=== PATIENT | male | born 1975 | race Hispanic/Latino ===

== ENCOUNTER 2017-12-16 21:10 | Emergency (ER) | payer BC ==
[2017-12-16 22:23] LABS: BASO % 0.4 % (0.0-2.0); EOS % 0.4 % (0.0-4.0); LYMPH # 1.3 K/uL (1.0-4.3); LYMPH % 12.1 % (20.0-40.0); MEAN CELL VOLUME 87.2 fl (80.0-94.0); MEAN CORPUSCULAR HEMOGLOBIN 30.8 pg (27.0-31.0); MEAN CORPUSCULAR HGB CONC 35.3 g/dL (33.0-37.0); MEAN PLATELET VOLUME 9.1 fl (7.2-11.7); MONO # 0.2 K/uL (0.0-0.8); MONO % 1.7 % (0.0-10.0); NEUT # 8.9 K/uL (1.8-7.0); NEUT % 85.4 % (50.0-75.0); RBC 5.5 Mil/uL (4.40-5.90); RED CELL DISTRIBUTION WIDTH 13.4 % (11.5-14.5); WHITE BLOOD COUNT 10.4 K/uL (4.8-10.8)
[2017-12-16 22:37] LABS: ALB/GLOB RATIO 1.4 (1.0-2.1); ALT/SGPT 28 U/L (21-72); AST/SGOT 27 U/L (17-59); BLOOD UREA NITROGEN 19 mg/dl (9-20); GFR AFRICAN-AMERICAN > 60; GFR NON-AFRICAN AMERICAN > 60
[2017-12-16 22:38] LABS: INR 1.1 (0.9-1.2); PROTHROMBIN TIME 12.1 Seconds (9.8-13.1)
[2017-12-16] MEDS ORDERED: Sodium Chloride 0.9% 50 ML IV ONE (22:44)
[2017-12-16] MEDS ORDERED: Iodixanol 320 MG/ML 100 ML BOTTLE IV ONE (22:45)
[2017-12-16] MEDS ORDERED: DiphenhydrAMINE 50 mg/ml Inj IV STA (22:55)
--- NOTE | 2017-12-16 23:09 | ED PDOC ---
HPI: SOB/CHF/COPD Time Seen by Provider: 12/16/17 21:22 Chief Complaint (Nursing): Shortness Of Breath Chief Complaint (Provider): shortness of breath History Per: Patient History/Exam Limitations: no limitations Onset/Duration Of Symptoms: Days Current Symptoms Are (Timing): Still Present Additional Complaint(s): 42 year old male presents to the ED complaining of shortness of breath and weakness. 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 He took a baby aspirin and no other blood thinners. Denies nausea, vomiting, diaphoresis. PMD: No Family Provider Past Medical History Reviewed: Historical Data, Nursing Documentation, Vital Signs Vital Signs: Last Vital Signs Temp 98 F 12/16/17 23:16 Pulse 92 H 12/17/17 00:32 Resp 16 12/17/17 00:32 BP 101/75 12/16/17 23:16 Pulse Ox 96 12/17/17 00:32 - Medical History PMH: Atrial Fibrillation Other PMH: lyme disease - Family History Family History: States: Unknown Family Hx - Allergies Allergies/Adverse Reactions: Allergies Allergy/AdvReac Type Severity Reaction Status Date / Time No Known Allergies Allergy Verified 12/16/17 21:13 Review of Systems ROS Statement: Except As Marked, All Systems Reviewed And Found Negative Constitutional: Positive for: Weakness. Negative for: Sweats Cardiovascular: Positive for: Palpitations Respiratory: Positive for: Shortness of Breath Gastrointestinal: Negative for: Nausea, Vomiting Physical Exam - Reviewed Nursing Documentation Reviewed: Yes Vital Signs Reviewed: Yes - Physical Exam Appears: Positive for: In Acute Distress (mild) Head Exam: Positive for: ATRAUMATIC, NORMAL INSPECTION, NORMOCEPHALIC Skin: Positive for: Normal Color, Warm, Dry Eye Exam: Positive for: EOMI, Normal appearance, PERRL ENT: Positive for: Normal ENT Inspection Neck: Positive for: Normal, Painless ROM, Supple. Negative for: Decreased ROM Cardiovascular/Chest: Positive for: Regular Rate, Rhythm, Tachycardia Respiratory: Positive for: Normal Breath Sounds. Negative for: Decreased Breath Sounds, Accessory Muscle Use, Respiratory Distress Gastrointestinal/Abdominal: Positive for: Normal Exam, Bowel Sounds, Soft. Negative for: Tenderness, Guarding, Rebound Back: Positive for: Normal Inspection. Negative for: L CVA Tenderness, R CVA Tenderness Extremity: Positive for: Normal ROM. Negative for: Tenderness, Pedal Edema, Deformity Neurologic/Psych: Positive for: Alert, Oriented (x3). Negative for: Motor/ Sensory Deficits - Laboratory Results Result Diagrams: 12/16/17 21:55 12/16/17 21:55 - ECG Pulse Ox Interpretation: Normal Medical Decision Making Medical Decision Making: Time: 2131 Initial Impression: 42 year old male with acute shortness of breath Initial Plan: --Angio Chest Chest PE Protocol [CT] --EKG --Alcohol Serum --CMP --Troponin --CBC W/ Differential --PTT --Prothrombin Time --Glucose, POC Routine --Benadryl 50mg --SOLU-Medrol 125mg --IV Insertion --Accucheck --Reevaluation 33 CT ANGIO CHEST FINDINGS: Pulmonary arteries: Normal. No pulmonary emboli. Aorta: No aortic aneurysm. No aortic dissection. Lungs: Mild subsegmental atelectasis. Faint subpleural nodule in the right upper lobe on image 59 measuring 3 mm No consolidation. No masses. Pleural No cardiomegaly. No pericardial effusion. Bones/joints: Degenerative changes in spine No acute fracture. Soft tissues: Unremarkable. Lymph nodes: Unremarkable. No enlarged lymph nodes. Minimal dilatation of the distal thoracic esophagus with possible minimal wall thickening. Small hiatal hernia not excluded IMPRESSION: No definite pulmonary emboli observed Mild subsegmental atelectasis 3 mm right middle lobe pulmonary nodule Question minimal esophagitis/small hiatal hernia 0050 Upon re-evaluation patient notes improvement in symptoms. Labs reviewed: no clinically significant abnormalities. 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 Dx: dyspnea Condition: improved Scribe Attestation: Documented by Emery Horn and Marti Mata, acting as a scribe for Wolf Nixon MD Provider Scribe Attestation: All medical record entries made by the Scribe were at my direction and personally dictated by me. I have reviewed the chart and agree that the record accurately reflects my personal performance of the history, physical exam, medical decision making, and the department course for this patient. I have also personally directed, reviewed, and agree with the discharge instructions and disposition. Disposition - Clinical Impression Clinical Impression: Dyspnea - Disposition Disposition: Routine/Home Disposition Time: 00:50 Condition: IMPROVED Instructions: Shortness of Breath (Dyspnea) Forms: [employer] (Portuguese)
[2017-12-16] MEDS ORDERED: DiphenhydrAMINE 50 mg/ml Inj ONE (23:10)
[2017-12-17 00:33] VITALS: O2SAT 96
[2017-12-17 01:12] VITALS: BP 107/66; PULSE 89; RESP 24
[2017-12-17 01:17] VITALS: TEMP 99.3
--- NOTE | 2017-12-17 10:24 | CT ---
PROCEDURE: CT Chest with contrast (Pulmonary Angiogram) HISTORY: chest pain r/o PE COMPARISON: None available. TECHNIQUE: Axial computed tomography images were obtained of the chest in the pulmonary arterial phase of enhancement. Coronal and sagittal reformatted images were created and reviewed. Intravenous contrast dose: Visipaque 320, 95 cc Radiation dose: Total exam DLP = 965.07 mGy-cm. This CT exam was performed using one or more of the following dose reduction techniques: Automated exposure control, adjustment of the mA and/or kV according to patient size, and/or use of iterative reconstruction technique. FINDINGS: PULMONARY ARTERIES: Unremarkable. No pulmonary embolism. AORTA: No acute findings. No thoracic aortic aneurysm. LUNGS: Mild bibasilar subsegmental atelectasis appreciated. No alveolitis bilaterally. A faint subpleural nodules identified at the right upper lobe in image 59 series 5 measuring 3 mm, potentially at least partially calcified. No additional pulmonary nodules in the central airways are clear. PLEURAL SPACES: Unremarkable. No effusion or pneuomothorax. HEART: Unremarkable. No cardiomegaly. No significant pericardial effusion. LYMPH NODES: No lymphadenopathy. BONES, CHEST WALL: Unremarkable. No fracture or destructive lesion OTHER FINDINGS: Small hiatal hernia is encountered. IMPRESSION: 1. No CT evidence of pulmonary embolus at this time. 2. Limited bibasilar subsegmental atelectasis identified. No pleural or pericardial effusion, significant lymphadenopathy, cardiomegaly or pulmonary vascular congestion. 3. A 3 mm subpleural nodule seen at the right upper lobe as a solitary pulmonary finding. Follow-up low-dose chest CT recommended in 12 months. Concordant preliminary report from [facility], 12/17/2017.
--- NOTE | 2017-12-17 11:41 | CARD ---
APPROVED REPORT EKG Measurement Heart [id number] IN [id number] <Conclusion> Sinus tachycardia T wave abnormality, consider inferior ischemia Abnormal ECG
== END 2017-12-17 01:26 | disposition home or self-care (01) ==
LOC: H.ER 21:10
DX: R06.00 Dyspnea, unspecified (principal); I48.91 Unspecified atrial fibrillation
CPT/HCPCS: 71275; 80053; 82948; 84484; 85025; 85610; 85730; 93005; 96374; 99285; G0480; J1200; J2930; Q9967